=== PATIENT | female | born 1985 | race Caucasian/White ===

== ENCOUNTER 2016-05-30 15:27 | Emergency (ER) | payer MEDICAID ==
[~2016-05-30] VITALS: Ht 162.6 cm; Wt 80.0 kg
[2016-05-30 15:29] VITALS: Ht 162.6 cm; Wt 80.0 kg
[2016-05-30] MEDS ORDERED: ACETAMINOPHEN 325 MG TAB PO STA (16:57)
--- NOTE | 2016-05-30 17:24 | ERD ---
ER Documentation Chief Complaint Date/Time DATE: 05/30/16 TIME: 17:23 Chief Complaint pelvic pain since yesterday , 14 weeks preg , no vag bleed HPI Patient is a 30-year-old female who presents to the ED with low back pain and pelvic pain 1 day. She is with a last normal menstrual period of . She states that she has an OB doctor but is unsure of the name. She also complains of light vaginal spotting 3 days ago. Denies fever or chills. Denies abdominal pain, nausea, vomiting, diarrhea or constipation. Leg pain or swelling. Denies cough, shortness of breath or difficulty breathing. ROS All systems reviewed and are negative except as per history of present illness. Medications Home Meds Active Scripts Acetaminophen* (Tylophen*) 500 Mg Capsule, 1 CAP PO Q6H Y for PAIN AND OR ELEVATED TEMP, #20 CAP Prov:CARLOS ANDERSEN PA-C 05/30/16 Nitrofurantoin Monohyd Macrocr* (Macrobid*) 100 Mg Capsr, 100 MG PO BID for 7 Days, CAP Prov:CARLOS ANDERSEN PA-C 05/30/16 PMhx/Soc Medical and Surgical Hx: pt denies Medical Hx, pt denies Surgical Hx History of Surgery: No Anesthesia Reaction: No Hx Neurological Disorder: No Hx Respiratory Disorders: No Hx Cardiac Disorders: No Hx Psychiatric Problems: No Hx Miscellaneous Medical Probl: No Hx Alcohol Use: No Hx Substance Use: No Hx Tobacco Use: No Smoking Status: Never smoker Physical Exam Vitals Vital Signs Date Time Temp Pulse Resp B/P Pulse Ox O2 Delivery O2 Flow Rate FiO2 05/30/16 15:29 98.4 90 18 128/65 100 Physical Exam GENERAL: Well-developed, well-nourished female. Appears in no acute distress. LUNG: Clear to auscultation bilaterally. No rhonchi, wheezing, rales or coarse breath sounds. HEART: Regular rate and rhythm. No murmurs, rubs or gallops. ABDOMEN: No scars, ecchymosis or rashes noted. Soft, nontender, and nondistended. Positive bowel sounds in all four quadrants. No rebound tenderness , no guarding. (-) McBurneys point tenderness. No CVA tenderness. BACK: No midline tenderness. Extremities: Equal pulses bilaterally. No peripheral clubbing, cyanosis or edema. No unilateral leg swelling. NEUROLOGIC: Alert and oriented. Moving all four extremities. 5/5 strength in all extremities. Normal speech. Steady gait. SKIN: Normal color. Warm and dry. No rashes or lesions. Capillary refill < 2 seconds Result Diagram: 05/30/16 0810 Results 24 hrs Laboratory Tests Test 05/30/16 17:30 White Blood Count 9.110^3/ul Red Blood Count 4.2510^6/ul Hemoglobin 11.6g/dl Hematocrit 34.9% Mean Corpuscular Volume 82.1fl Mean Corpuscular Hemoglobin 27.3pg Mean Corpuscular Hemoglobin Concent 33.2g/dl Red Cell Distribution Width 15.0% Platelet Count 70005^3/UL Mean Platelet Volume 10.1fl Neutrophils % 70.0% Lymphocytes % 19.8% Monocytes % 7.9% Eosinophils % 1.6% Basophils % 0.3% Nucleated Red Blood Cells % 0.0/100WBC Neutrophils # 6.410^3/ul Lymphocytes # 1.810^3/ul Monocytes # 0.710^3/ul Eosinophils # 0.210^3/ul Basophils # 0.010^3/ul Nucleated Red Blood Cells # 0.010^3/ul Urine Color LT. YELLOW Urine Clarity SLIGHTLY CLOUDY Urine pH 6.0 Urine Specific [facility] 1.020 Urine Ketones TRACE Urine Nitrite NEGATIVE Urine Bilirubin NEGATIVE Urine Urobilinogen 0.2 E.U./dL Urine Leukocyte Esterase 1+ Urine Microscopic RBC 0-2/HPF Urine Microscopic WBC 5-10/HPF Urine Epithelial Cells MANY Urine Bacteria FEW Urine Hemoglobin NEGATIVE Urine Glucose NEGATIVE% Urine Total Protein NEGATIVE Beta HCG, Quantitative 10948.0mIU/ml Current Medications Medications (Trade) Dose Ordered Sig/Lilliana Route PRN Reason Start Time Stop Time Status Last Admin Dose Admin Acetaminophen (Tylenol Tab) 650 mg ONCE STAT PO 05/30/16 16:57 05/30/16 17:00 DC 05/30/16 17:29 Procedures/MDM ER COURSE: I kept the patient and/or family informed of laboratory and diagnostic imaging results throughout the emergency room course. EKG, MONITORS, & DIAGNOSTIC IMAGING: [place] [id number] Radiology Main Line: [phone] DIAGNOSTIC IMAGING REPORT Patient: MARIA LUISA VALLADARES : 1985 Age: 30 Sex: F MR #: [id number] DOS: 05/30/16 1657 Ordering MD: CARLOS ANDERSEN PA-C Location: [facility] Room/Bed: PROCEDURE: Real Time Sonogram. 05/30/20165:21 PM CLINICAL INDICATION: pelvic pain, back pain, light vaginal spotting TECHNIQUE: This procedure was performed on a high-resolution real time Unit using a endovaginal probe. COMPARISON: No. FINDINGS: The uterus measures 11.7 cm sagittal sagittal by 7.8 cm AP and contains a gestational sac containing a single fetus. Presentation: Mobile. Cervical Length: 4.5 cm. Placental Location: Anterior. Grade 0. Placental Previa: No. Body limb and cardiac motion: Yes. Heart rate: 154 beats per minute. Amniotic fluid volume: Normal. Measured data: BPD: 2.53 cm 14 weeks 3 days HC: 9.33 cm 14 weeks 2 days. AC: 8.5 cm 14 weeks 6 days. FC: 1.4 cm 14 weeks 1 day. AUA: 14 weeks 3 days plus or minus 1 week 0 days. JONH (AUA): 11/25/2016. Serial scan estimated menstrual age: Not calculated. weight: Not calculated. Endovaginal imaging utilized:Yes Additional findings: The left ovary measures 2.4 x 1.1 x 1.5 cm. The right ovary was not evaluated. IMPRESSION: See above RPTAT:AAJJ Physician John Paul Date Time Electronically viewed and signed by Physician John Paul on 05/30/2016 18:04 JM/ CC: CARLOS ANDERSEN PA-C LAB INTERPRETATION: CBC showed no evidence of systemic infection or severe anemia. UA showed nitrites or hematuria, 1+ leukocytes. C.0 RH:o+ MEDICAL DECISION MAKING: This is a 30-year-old female who presents with who presents mild pelvic pain vital signs were reviewed. Patient is afebrile. Patient is not hypoxic. Patient is nontoxic or ill-appearing. Ultrasound is read by radiologist is unremarkable. Low suspicion for ovarian torsion, PID, tuboovarian abscess, ectopic , bowel obstruction, pyelonephritis, appendicitis, cervicitis, septic , molar , HELLP syndrome, preeclampsia, eclampsia, placenta previa, placenta abruptia. Patient likely has threatened and UTI. Patient is hemodynamically stable. DISCHARGE: At this time, patient is stable for discharge and outpatient management with no new complaints during the ER course. Patient was sent home with copy of imaging studies and laboratory studies and to follow-up with her OB doctor. Patient will also be sent home with Macrobid.. Patient will be discharged home with instructions to recheck for new or worsening symptoms such as fever, nausea, weakness, LOC and to follow up with primary care in the next 1-2 days. Patient was advised to return to the ER for any new or worsening symptoms. Plan was discussed and patient and/or family understands and agrees. Home instructions were given. Departure Diagnosis: Primary Impression: Pelvic pain complicating Condition: Stable CARLOS ANDERSEN PA-C May 30, 2016 17:24
[2016-05-30 17:49] LABS: ADD SCAN DIFF NO
[2016-05-30 17:52] LABS: BASOPHILS % 0.3 % (0.0-2.0); EOSINOPHILS # 0.2 10^3/ul (0.0-0.5); EOSINOPHILS % 1.6 % (0.0-7.0); HEMATOCRIT 34.9 % (37.0-47.0); HEMOGLOBIN 11.6 g/dl (12.0-16.0); LYMPHOCYTES # 1.8 10^3/ul (0.8-2.9); LYMPHOCYTES % 19.8 % (15.0-51.0); MEAN CORPUSCULAR HEMOGLOBIN 27.3 pg (29.0-33.0); MEAN CORPUSCULAR HGB CONC 33.2 g/dl (32.0-37.0); MEAN CORPUSCULAR VOLUME 82.1 fl (82.0-101.0); MEAN PLATELET VOLUME 10.1 fl (7.4-10.4); MONOCYTE # 0.7 10^3/ul (0.3-0.9); MONOCYTES % 7.9 % (0.0-11.0); NEUTROPHIL # 6.4 10^3/ul (1.6-7.5); PLATELET COUNT 259 10^3/UL (140-415); RED BLOOD COUNT 4.25 10^6/ul (4.20-5.40); WHITE BLOOD COUNT 9.1 10^3/ul (4.8-10.8)
[2016-05-30 17:55] LABS: ADD UMIC YES; URINE BILIRUBIN (Dip) NEGATIVE (NEGATIVE); URINE BLOOD (Dip) NEGATIVE (NEGATIVE); URINE COLOR LT. YELLOW (YELLOW); URINE GLUCOSE (Dip) NEGATIVE (NEGATIVE); URINE KETONES (Dip) TRACE (NEGATIVE); URINE LEUKOCYTE ESTERASE (Dip) 1+ (NEGATIVE); URINE NITRITE (Dip) NEGATIVE (NEGATIVE); URINE TOTAL PROTEIN (Dip) NEGATIVE (NEGATIVE); URINE UROBILINOGEN (Dip) 0.2 E.U./dL (0.1-1.0)
[2016-05-30 18:03] LABS: BACTERIA,URINE FEW; URINE RBCS 0-2 /HPF (0)
--- NOTE | 2016-05-30 18:04 | RADRPT ---
PROCEDURE: Real Time Sonogram. 05/30/20165:21 PM CLINICAL INDICATION: pelvic pain, back pain, light vaginal spotting TECHNIQUE: This procedure was performed on a high-resolution real time Unit using a endovaginal pr obe. COMPARISON: No. FINDINGS: The uterus measures 11.7 cm sagittal sagittal by 7.8 cm AP and contains a gestational sac containing a single fetus. Presentation: Mobile. Cervical Length: 4.5 cm.Placental Location: Anterior. Grade 0.Placental Previa: No. Body limb and cardiac motion: Yes.Heart rate: 154 beats per minute. Amniotic fluid volume:Normal. Measured data: BPD:2.53 cm14 weeks 3 days HC:9.33 cm14 weeks 2 days. AC:8.5 cm14 weeks 6 days. FC:1.4 cm14 weeks 1 day. AUA:14 weeks 3 daysplus or minus 1 week 0 days. JONH (AUA):11/25/2016. Serial scan estimated menstrual age: Not calculated. weight: Not calculated. Endovaginal imaging utilized:Yes Additional findings: The left ovary measures 2.4 x 1.1 x 1.5 cm. The right ovary was not evaluated. IMPRESSION: See above RPTAT:AAJJ Physician John Paul Date Time Electronically viewed and signed by Crow Whaley Physician on 05/30/2016 18:04 KHOA/
[2016-05-30] MEDS ORDERED: NITR-58 PO (18:15)
[2016-05-30] MEDS ORDERED: ACET500C5 PO (18:16)
[2016-05-30 19:04] VITALS: BP 108/53; PULSE 78; RESP 16; TEMP 98.2
== END 2016-05-30 19:05 | disposition home or self-care (01) ==
LOC: FTE 15:27
DX: O26.892 Other specified pregnancy related conditions, second trimester (principal); R10.2 Pelvic and perineal pain; Z3A.14 14 weeks gestation of pregnancy
CPT/HCPCS: 76805; 81001; 81003; 84702; 85025; 86900; 86901; Z7610; 36415

== ENCOUNTER 2016-11-02 00:17 | Inpatient (IN) | payer MEDICAID ==
--- NOTE | 2016-09-07 23:55 | PN ---
Triage Information Date/Time 09/07/2013 Weeks of Gestation 28 weeks and 2 days : 3 Para: 2 Diabetes: none Hypertention: none Additional information 30-year-old 3 para 2 with IUP at 28 weeks and 2 days presented with complaint of uterine contractions or leaking of fluid. She denied any vaginal bleeding. She denies any compensation during her antepartum course. She was a scheduled for GDM screening test this week. Objective Heart Rate: 130's Contractions: 6-10 Minutes Apart Exam General appearance: Alert and oriented 4 patient does not appear to be in acute distress Abdomen: Soft, gravid, nontender, fundal height consistent with gestational age NST: Category 1 and appropriate for gestational age Irregular contractions noted on the monitor results with hydration Assessment: Examination: Negative pulling R OM test negative. FFM negative Cervix is 4 cm long. Results/Medications Imaging Results PROCEDURE: US OB biophysical profile. CLINICAL INDICATION: decreased movements TECHNIQUE: Multiple sonographic images of the pelvis were obtained. The images were reviewed on a PACS workstation. COMPARISON: No prior studies are available for comparison. FINDINGS: There is a single viable intrauterine gestation. Cardiac activity is present with 150 beats per minute. There is a vertex presentation. The placenta is anterior. There is no evidence of placental abruption. There is a slightly increased amount of amniotic fluid with an CORRY = 22.4 cm. Biophysical profile: movement 2/2 tone 2/2. breathing 2/2 CORRY 2/2 Total 8 RPTAT: AA . IMPRESSION: Normal biophysical profile. Mild polyhydramnios. . ROCEDURE: CERVICAL LENGTH ULTRASOUND CLINICAL INDICATION: labor at 28 weeks gestational age. TECHNIQUE: Trans-vaginal imaging of the cervical canal was performed utilizing mckenzie-scale imaging. Sagittal and transverse images were obtained. Trans-abdominal images were also obtained. The images were reviewed on a PACS workstation. COMPARISON: None. FINDINGS: There is a single live intrauterine . heart rate is 141 beats per minute. Position is cephalic and placenta is anterior grade 1. There is no placenta previa. The cervix is closed with a length of 4.0 cm. IMPRESSION: 1. Cervical length is 4.0 cm. RPTAT: QQ Assessment/Plan IUP at 28 weeks and 2 days No evidence of labor or PPROM Borderline mild polyhydramnios noted in ultrasound Patient had early GDM testing that was negative Large for gestational age based on estimated weight in ultrasound, 98 % Finding discussed with the patient strict labor precaution and kick count discussed Advised the patient to have a follow-up in 1-2 days after discharge from the triage with her OB office for further evaluation of polyhydramnios Random blood sugar in the triage within normal limits Needs to have a follow-up for the amniotic fluid and growth ultrasound Patient verbalized understanding CARMEN FONTANEZ MD Sep 07, 2016 23:54
[~2016-11-02] VITALS: Ht 152.4 cm; Wt 96.4 kg
[~2016-11-02 00:17] MED LIST: ACET500C5 PO
[2016-11-02 00:37] VITALS: BP 115/75; PULSE 101; RESP 20; Ht 152.4 cm; Wt 96.4 kg
[2016-11-02] MEDS ORDERED: PREN1TAB79 PO (00:40)
[2016-11-02] MEDS ORDERED: FERR325C PO (00:40)
[2016-11-02] MEDS ORDERED: LACTATED RINGER'S 1,000 ML IV* SCH (01:30)
[2016-11-02] MEDS ORDERED: LACTATED RINGER'S 1,000 ML IV ONE (01:30)
--- NOTE | 2016-11-02 02:10 | RADRPT ---
PROCEDURE: Biophysical profile. CLINICAL INDICATION: Pelvic pain. TECHNIQUE: Multiple sonographic images of the pelvis were obtained with transabdominal technique. COMPARISON: 09/07/2016. FINDINGS: There is a single living intrauterine gestation with the fetus in a vertex position. The placenta i s anterior in location, grade II. heart tones of 163 beats per minute are identified. There i s normal amniotic fluid volume with an CORRY of 9.9 cm. breathing movements = 2 Gross body movements = 2 tone = 2 Qualitative AFV = 2 IMPRESSION: Biophysical profile 8 out of 8. .Bruno Valenzuela MD, Date Time Electronically viewed and signed by .Bruno Valenzuela MD, on 11/02/2016 02:10 .T/
--- NOTE | 2016-11-02 02:12 | RADRPT ---
PROCEDURE: Obstetrical ultrasound, limited. CLINICAL INDICATION: Pelvic pain. TECHNIQUE: Multiple sonographic images of the pelvis were obtained using transabdominal technique . Images were obtained with mckenzie scale and color Doppler. The images were reviewed on a PACS works tation. COMPARISON: 09/07/2016. FINDINGS: There is a single living intrauterine gestation with the fetus in a vertex presentation. hear t tones of 163 beats per minute are identified. The placenta is anterior in location, grade 2. The re is no evidence of placenta previa or abruption. Measurements were made in order to determine age. The results are as follows: BPD =8.90 cm HC =31.80 cm AC =35.15 cm FL =6.87 cm. Estimated gestational age of approximately 36 weeks and 4 days. The estimated date of delivery is 11/26/2016. The EFW = 3219 +/- 483 grams. Estimated weight percentage equals 82.6%. IMPRESSION: Single viable intrauterine gestation of approximately 36 weeks and 4 days, with an ultrasound JONH of 11/26/2016. .Bruno Valenzuela MD, MD Date Time Electronically viewed and signed by .Bruno Valenzuela MD, MD on 11/02/2016 02:12 .T/
[2016-11-02 02:27] LABS: ABNORMAL IP MESSAGE 1; BASOPHILS % 0.3 % (0.0-2.0); EOSINOPHILS # 0.1 10^3/ul (0.0-0.5); EOSINOPHILS % 0.7 % (0.0-7.0); HEMATOCRIT 31.5 % (37.0-47.0); HEMOGLOBIN 10.2 g/dl (12.0-16.0); LYMPHOCYTES # 0.4 10^3/ul (0.8-2.9); LYMPHOCYTES % 5.3 % (15.0-51.0); MEAN CORPUSCULAR HEMOGLOBIN 26.6 pg (29.0-33.0); MEAN CORPUSCULAR HGB CONC 32.4 g/dl (32.0-37.0); MONOCYTE # 0.7 10^3/ul (0.3-0.9); MONOCYTES % 10.5 % (0.0-11.0); NEUTROPHILS % 82.5 % (39.0-77.0); PLATELET COUNT 196 10^3/UL (140-415); RED BLOOD COUNT 3.84 10^6/ul (4.20-5.40); RED CELL DISTRIBUTION WIDTH 15.5 % (11.5-14.5); WHITE BLOOD COUNT 6.8 10^3/ul (4.8-10.8)
[2016-11-02 02:29] LABS: ADD UMIC NO; UR ASCORBIC ACID NEGATIVE (NEGATIVE); UR BACTERIA FEW /HPF (NONE SEEN); UR BILIRUBIN (Dip) NEGATIVE (NEGATIVE); UR BLOOD (Dip) NEGATIVE (NEGATIVE); UR CLARITY SLIGHTLY CLOUDY (CLEAR); UR COLOR YELLOW (YELLOW); UR GLUCOSE (Dip) NEGATIVE (NEGATIVE); UR KETONES (Dip) NEGATIVE (NEGATIVE); UR LEUKOCYTE ESTERASE (Dip) NEGATIVE Leu/ul (NEGATIVE); UR MUCUS FEW /HPF (NONE SEEN); UR NITRITE (Dip) NEGATIVE (NEGATIVE); UR RBC 1 /HPF (0-5); UR SPECIFIC GRAVITY (Dip) 1.013 (1.003-1.030); UR SQUAMOUS EPITHELIAL CELL FEW /HPF (FEW); UR TOTAL PROTEIN (Dip) NEGATIVE (NEGATIVE); UR UROBILINOGEN (Dip) NEGATIVE (NEGATIVE)
[2016-11-02 02:35] LABS: POSITIVE DIFF @See below
[2016-11-02] MEDS ORDERED: CEFTRIAXONE 1 GM/50 ML (PMX) 50 ML IVPB ONE (04:00)
[2016-11-02] MEDS ORDERED: LACTATED RINGER'S 1,000 ML IV SCH (04:03)
[2016-11-02] MEDS ORDERED: ACETAMINOPHEN 500 MG TAB PO ONE (04:39)
[2016-11-02] MEDS: SOD CHLORIDE 0.9% 1,000 ML IV SCH ×4 (05:00→23:36)
[2016-11-02] MEDS: CEFTRIAXONE 1 GM/50 ML (PMX) 50 ML IVPB SCH (05:01)
--- NOTE | 2016-11-02 05:19 | HP ---
Date/Time of Note Date/Time of Note DATE: 11/02/16 TIME: 05:02 OB - History Hx of Present Free Text/Dictation 30 y.o [id number] presented at triage c/o back pain and nusea hip bone pain since 0900 this morning She was placed on antibiotics 1800 11/01/16 IV hydration with BPP EFW U/A done U/A neg EFM shows tachycardia 160-170 along with maternal low grade fever, maternal HR 107 WBC 6800 and started having UCs on EFM CVA on Rt tenderness + LT neg for tenderness admitted for observation and with IV fluid and rocephin Chief Complaint: back pain Estimated Due Date: Nov 28, 2016 : 3 Para: 2 Spontaneous : 0 Therapeutic : 0 Care: Other Ultrasounds: Other Obstetrical Complications: None Medical Complications: None Past Family/Social History * Past Medical, Surgical, Family and Obstetric Histories reviewed from chart. Blood Type: Unknown Rubella: unknown RPR/VDRL: Unknown GBS Status: Unknown HBsAG: Unknown OB Admission Exam Vital Signs Vital Signs Vital Signs Date Time Temp Pulse Resp B/P Pulse Ox O2 Delivery O2 Flow Rate FiO2 11/02/16 00:37 98.3 101 20 115/75 98 Room Air Physical Exam HEENT: WNL Heart: Rhythm Normal Lungs: Clear, Equal Abdomen: WNL Extremities: Normal Reflexes: Normal Membranes: Intact Amniotic Fluid: Unevaluable Accelerations: Accelerations Present Decelerations: No Decelerations Varibility: Moderate Contractions on Admission: 6-10 Minutes Apart Intensity: Mild Last 72 hours Lab Results CBC & BMP 11/02/16 01:30 OB Assessment/Plan Reason for admission: labor, other (back pain) Other Assessment: IUP 36w2d r/o UTI urine culture sent Other plan: IV with antibiotics and observation ERIKA ORNELAS MD Nov 02, 2016 05:15
[2016-11-02 06:23] LABS: INR 0.94; PROTIME 12.6 Sec (12.2-14.2)
[2016-11-02 06:24] LABS: PARTIAL THROMBOPLASTIN TIME 29.9 Sec (25.0-35.0)
--- NOTE | 2016-11-02 06:47 | TRIAGE ---
OB Triage Datetime Report Generated by CPN: 11/02/2016 06:46 Datetime: 11/02/2016 06:38 Stage of : Labor Maternal Assessment Level of Consciousness: Fully Conscious DTR's/Clonus: DTRs 2+ Headache: Denies Blurred Vision: Yes Nausea/Vomiting: Denies RUQ Epigastric Pain: Denies Facial Edema: None Labor Evaluation Frequency: 3-4 Monitor Mode: External Duration (sec)2399: 30-40 Quality: Mild Heart Rate FHR Baseline Rate: 155 Monitor Mode: External US FHR Baseline Changes: No Baseline Change Variability: Moderate 6-25 bpm Decelerations: None Category: Category I Pain Assessment Pain Scale: 0 Pain Presence: None/Denies Pain Type: N/A Pain Location: Abdomen Pain Relief Measures: Comfort Measures Membrane Status: Intact Datetime: 11/02/2016 05:55 Stage of : Labor Maternal Assessment Level of Consciousness: Fully Conscious DTR's/Clonus: DTRs 2+ Headache: Denies Blurred Vision: No Respiratory Effort: Unlabored Breath Sounds, Left: Clear and Equal Breath Sounds, Right: Clear and Equal Nausea/Vomiting: Denies RUQ Epigastric Pain: Denies Facial Edema: None Labor Evaluation Frequency: 2.5-3 Monitor Mode: External Duration (sec)2399: 30-45 Quality: Mild Pattern: Normal: <= 5 Contractions in 10 Minutes Resting Tone [place]: Relaxed Heart Rate FHR Baseline Rate: 150 Monitor Mode: External US FHR Baseline Changes: No Baseline Change Variability: Moderate 6-25 bpm Accelerations: 15X15 Decelerations: None Category: Category I Pain Assessment Pain Scale: 5 Pain Presence: Intermittent Pain Type: Cramping; Contraction Pain Relief Measures: Comfort Measures Vaginal Exam Dilatation (cms): 0.5 Effacement (%): 60 Station: -3 Exam By: avery schmidt rn Membrane Status: Intact Vaginal Bleeding: None Cervix, Consistency: Soft Cervix, Position: Midposition Presentation 'A': Cephalic Lie 'A': Unable to Assess Datetime: 11/02/2016 05:30 Assessment Type: Admission Assessment Vaginal Bleeding: None Maternal Assessment Level of Consciousness: Fully Conscious DTR's/Clonus: DTRs 2+; No Clonus Headache: Denies Blurred Vision: No Respiratory Effort: Unlabored; Regular Rhythm; Equal Expansion Breath Sounds, Left: Clear and Equal Breath Sounds, Right: Clear and Equal Nausea/Vomiting: Denies RUQ Epigastric Pain: Denies Facial Edema: None Fall Risk Assessment History of Falling: (0) No Secondary Diagnosis: (0) No Ambulatory Aid: (0) Bedrest/Nurse Assist IV Therapy: (20) Yes Gait: (0) Normal/Bedrest/Immobile Mental Status: (0) Oriented to Own Ability Fall Score: 20 Fall Risk Score Definition: No Risk: No action required Labor Evaluation Frequency: 2-3 Duration (sec)2399: 30-45 Quality: Mild Pattern: Normal: <= 5 Contractions in 10 Minutes Resting Tone [place]: Relaxed Pain Assessment Pain Scale: 5 Pain Presence: Intermittent Pain Type: Cramping; Dull; Contraction; Ache Pain Location: Abdomen; Back Pain Goal: 2 Membrane Status: Intact Datetime: 11/02/2016 05:05 Stage of : Labor Maternal Assessment Level of Consciousness: Fully Conscious DTR's/Clonus: DTRs 2+ Headache: Denies Blurred Vision: No Respiratory Effort: Unlabored Breath Sounds, Left: Clear and Equal Breath Sounds, Right: Clear and Equal Nausea/Vomiting: Denies RUQ Epigastric Pain: Denies Facial Edema: None Labor Evaluation Frequency: 3 Monitor Mode: External Duration (sec)2399: 35-45 Quality: Mild Pattern: Normal: <= 5 Contractions in 10 Minutes Resting Tone [place]: Relaxed Heart Rate FHR Baseline Rate: 165 Monitor Mode: External US FHR Baseline Changes: Tachycardia Variability: Moderate 6-25 bpm Accelerations: 15X15 Decelerations: None Category: Category II Pain Assessment Pain Scale: 6 Pain Presence: Intermittent Pain Type: Cramping; Dull; Ache Pain Location: Abdomen; Back; Right Groin; Left Groin; Right Hip; Left Hip; Right Flank Pain Goal: 2 Pain Relief Measures: Pain Medication Given; Comfort Measures Pain Assessment Comments: tylenol 1000mg po as ordered Membrane Status: Intact Datetime: 11/02/2016 04:00 Stage of : OB Triage Labor Evaluation Frequency: Irritability with irregular uc's Monitor Mode: External Duration (sec)2399: 20-80 Quality: Mild Pattern: Normal: <= 5 Contractions in 10 Minutes Resting Tone [place]: Relaxed Heart Rate FHR Baseline Rate: 165 Monitor Mode: External US FHR Baseline Changes: Tachycardia Variability: Moderate 6-25 bpm Accelerations: 15X15 Decelerations: None Category: Category II Datetime: 11/02/2016 03:57 Temperature Route: Oral Datetime: 11/02/2016 03:54 Membrane Status: Intact Datetime: 11/02/2016 03:30 Temperature Route: Oral Datetime: 11/02/2016 03:00 Stage of : OB Triage Labor Evaluation Frequency: Irritability with irregular uc's Monitor Mode: External Duration (sec)2399: 30-90 Quality: Mild Pattern: Normal: <= 5 Contractions in 10 Minutes Resting Tone [place]: Relaxed Heart Rate FHR Baseline Rate: 165 Monitor Mode: External US FHR Baseline Changes: Tachycardia Variability: Moderate 6-25 bpm Accelerations: 15X15 Decelerations: None Category: Category II Datetime: 11/02/2016 02:35 Temperature Route: Oral Datetime: 11/02/2016 02:08 Stage of : OB Triage Datetime: 11/02/2016 02:00 Stage of : OB Triage Labor Evaluation Frequency: Irritability with irregular uc's Monitor Mode: External Duration (sec)2399: 30-60 Quality: Mild Pattern: Normal: <= 5 Contractions in 10 Minutes Resting Tone [place]: Relaxed Heart Rate FHR Baseline Rate: 170 Monitor Mode: External US FHR Baseline Changes: Tachycardia Variability: Moderate 6-25 bpm Accelerations: 15X15 Decelerations: None Category: Category II Datetime: 11/02/2016 01:00 Stage of : OB Triage Labor Evaluation Frequency: Irritability Monitor Mode: External Duration (sec)2399: 30-60 Quality: Mild Pattern: Normal: <= 5 Contractions in 10 Minutes Resting Tone [place]: Relaxed Heart Rate FHR Baseline Rate: 165 Monitor Mode: External US FHR Baseline Changes: Tachycardia Variability: Moderate 6-25 bpm Accelerations: 15X15 Decelerations: None Category: Category II Datetime: 11/02/2016 00:56 Stage of : OB Triage Datetime: 11/02/2016 00:54 Stage of : OB Triage Datetime: 11/02/2016 00:30 Time of Arrival: 11/02/2016 04:30 EGA: 36.2 Arrived By: Wheelchair Arrived From: Home Chief Complaint: Bone aches, back _ body pains Movement: Present Contractions: Denies/Absent Rupture of Membranes: Denies Vaginal Bleeding: None Vaginal Discharge: Present Abdominal Trauma: Not Applicable Patient Complaints: Back Pain Time Provider Notified: 11/02/2016 00:56 Provider Notified: Initial Plan: UA, BPP, EFW, IV hydration, CBC Datetime: 11/02/2016 00:28 Stage of : OB Triage Assessment Type: Triage Maternal Assessment Level of Consciousness: Fully Conscious DTR's/Clonus: DTRs 2+; No Clonus Headache: Frontal (Annotations: and ear ache) Blurred Vision: No Respiratory Effort: Unlabored; Regular Rhythm; Equal Expansion Breath Sounds, Left: Clear and Equal Breath Sounds, Right: Clear and Equal Nausea/Vomiting: Present (Annotations: Nausea all day) RUQ Epigastric Pain: Denies Lower Extremities Edema: None Degree: None Upper Extremities Edema: None Degree: None Facial Edema: None Temperature Route: Oral Fall Risk Assessment History of Falling: (0) No Secondary Diagnosis: (0) No Ambulatory Aid: (0) Bedrest/Nurse Assist IV Therapy: (0) No Gait: (0) Normal/Bedrest/Immobile Mental Status: (0) Oriented to Own Ability Fall Score: 0 Fall Risk Score Definition: No Risk: No action required Pain Assessment Pain Scale: 4 Pain Presence: Constant Pain Type: Ache Pain Location: Back; Right Hip; Left Hip Pain Relief Measures: Comfort Measures Datetime: 09/07/2016 15:18 Fall Score: 0 Fall Risk Score Definition: No Risk: No action required Datetime: 09/07/2016 15:08 EGA: 28.2
[2016-11-02] MEDS: ACETAMINOPHEN 325 MG TAB PO PRN ×2 (09:40→21:51)
[2016-11-02 11:05] LABS: BARBITURATES Negative (NEGATIVE); BENZODIAZEPINES Negative (NEGATIVE); CANNABINOIDS Negative (NEGATIVE); COCAINE Negative (NEGATIVE); OPIATES Negative (NEGATIVE)
--- NOTE | 2016-11-02 12:27 | QN ---
Documentation Comment Progress note labor and delivery Since seen and evaluated awake alert oriented 3 denies nausea vomiting's of breath visual changes Complains of contraction and lower back pain Vital signs stable afebrile Abdomen gravid positive left CVA tenderness Extremity negative edema no calf tenderness Vaginal exam 2/40/-3 heart rate category 1 toco contractions every 1-4 minutes Assessment interim at 36 weeks and 2 day gestational age with left pyelonephritis/ labor currently on IV antibiotics Plan continue expected management NORBERTO RAMON MD Nov 02, 2016 12:27
[2016-11-02] MEDS ORDERED: OXYTOCIN 30 UNITS/LR 500 ML IV SCH ×2 (12:30)
[2016-11-02] MEDS ORDERED: LIDOCAINE 1% (MPF) 30 ML INJ INJ PRN (12:30)
[2016-11-02] MEDS ORDERED: MISOPROSTOL 200 MCG TAB PR PRN (12:30)
[2016-11-02] MEDS ORDERED: METHYLERGONOVINE 0.2 MG INJ IM PRN (12:30)
[2016-11-02] MEDS ORDERED: OXYTOCIN 30 UNITS/LR 500 ML IV PRN (12:30)
[2016-11-02] MEDS ORDERED: CARBOPROST 250 MCG INJ IM PRN (12:30)
[2016-11-02] MEDS ORDERED: BUTORPHANOL 2 MG INJ IV ONE (17:00)
[2016-11-03] MEDS: CEFTRIAXONE 1 GM/50 ML (PMX) 50 ML IVPB SCH (05:01)
[2016-11-03] MEDS: BUTORPHANOL 2 MG INJ IV PRN (06:05)
[2016-11-03] MEDS: SOD CHLORIDE 0.9% 1,000 ML IV SCH ×3 (07:46→22:52)
[2016-11-03] MEDS: ACETAMINOPHEN 325 MG TAB PO PRN ×3 (15:06→22:52)
--- NOTE | 2016-11-03 19:34 | QN ---
Documentation Comment Progress note labor and delivery Patient seen and evaluated awake alert oriented 3 denies nausea vomiting shortness of breath visual changes epigastric pain Vital signs stable afebrile H EENT within normal Lungs CTA bilateral CVS positive S1-S2 regular rhythm Abdomen gravid positive right CVA tenderness improved since yesterday Extremity no edema no calf tenderness Patient had a urine culture performed on October 26, 2016 more than 100,000 Klebsiella sensitive to ceftriaxone Assessment intrauterine at 36 weeks gestational age currently on Rocephin improving symptoms of pyelonephritis Plan consider discharge home tomorrow if patient's symptoms improve NORBERTO RAMON MD Nov 03, 2016 19:34
[2016-11-04] MEDS: BUTORPHANOL 2 MG INJ IV PRN ×3 (03:19→15:57)
[2016-11-04] MEDS: SOD CHLORIDE 0.9% 1,000 ML IV SCH (04:22)
[2016-11-04] MEDS: CEFTRIAXONE 1 GM/50 ML (PMX) 50 ML IVPB SCH (05:23)
[2016-11-04] MEDS ORDERED: OXYTOCIN 30 UNITS/LR 500 ML IV SCH (07:30)
[2016-11-04] MEDS: ACETAMINOPHEN 325 MG TAB PO PRN (07:35)
--- NOTE | 2016-11-04 09:19 | QN ---
Documentation Comment I was called this morning and made aware patient had premature rupture of membrane. I gave orders for Pitocin augmentation as needed. NORBERTO RAMON MD Nov 04, 2016 09:19
[2016-11-04] MEDS: LACTATED RINGER'S 1,000 ML IV PRN ×2 (11:31→18:31)
[2016-11-04] MEDS: LACTATED RINGER'S 1,000 ML IV SCH ×2 (13:58→20:06)
[2016-11-04 15:37] LABS: BASOPHILS % 0.3 % (0.0-2.0); HEMATOCRIT 34.4 % (37.0-47.0); HEMOGLOBIN 10.9 g/dl (12.0-16.0); LYMPHOCYTES # 0.8 10^3/ul (0.8-2.9); LYMPHOCYTES % 10.4 % (15.0-51.0); MEAN CORPUSCULAR HGB CONC 31.7 g/dl (32.0-37.0); MEAN CORPUSCULAR VOLUME 85.1 fl (82.0-101.0); MEAN PLATELET VOLUME 11.5 fl (7.4-10.4); MONOCYTE # 0.3 10^3/ul (0.3-0.9); MONOCYTES % 4.2 % (0.0-11.0); NEUTROPHILS % 84.7 % (39.0-77.0); PLATELET COUNT 180 10^3/UL (140-415); RED BLOOD COUNT 4.04 10^6/ul (4.20-5.40); RED CELL DISTRIBUTION WIDTH 15.9 % (11.5-14.5); WHITE BLOOD COUNT 7.8 10^3/ul (4.8-10.8)
[2016-11-04 15:51] LABS: ALBUMIN 2.9 g/dl (3.3-4.9); ALBUMIN/GLOBULIN RATIO 0.78; BILIRUBIN,INDIRECT 0.1 mg/dl (0-1.1); BILIRUBIN,TOTAL 0.1 mg/dl (0.2-1.3); CALCIUM 7.4 mg/dl (8.4-10.2); CREATININE 0.58 mg/dl (0.44-1.00); POTASSIUM 3.7 mmol/L (3.5-5.1); TOTAL PROTEIN 6.6 g/dl (6.1-8.1); URIC ACID 4.5 mg/dl (3.1-7.9)
[2016-11-04] MEDS ORDERED: CARBOPROST 250 MCG INJ IM PRN ×2 (16:00→20:00)
[2016-11-04] MEDS ORDERED: METHYLERGONOVINE 0.2 MG INJ IM PRN ×2 (16:00→20:00)
[2016-11-04] MEDS ORDERED: MISOPROSTOL 200 MCG TAB PR PRN ×2 (16:00→20:00)
[2016-11-04] MEDS ORDERED: OXYTOCIN 30 UNITS/LR 500 ML IV PRN ×2 (16:00→20:00)
[2016-11-04] MEDS ORDERED: CEFAZOLIN 2 GM/50 ML (PMX) 50 ML IV SCH (16:00)
[2016-11-04] MEDS ORDERED: FENTAnyl 2MCG/ML-ROPIV 0.2% 100 ML ONE (18:53)
--- NOTE | 2016-11-04 19:46 | LDN ---
Date/Time of Note Date/Time of Note DATE: 11/04/16 TIME: 19:45 Delivery Summary Weeks of Gestation 36 Placenta Delivered: Spontaneously Meconium: none Episiotomy: Yes Laceration repair: 1st degree vaginal laceration repair with 3-0 chromic Anesthesia type: Epidural Estimated blood loss: 200 Sponge & Needle done & correct: Yes All needle counts correct: Yes Any foreign bodies felt in the: No Problems: Delivery Information Sex Sex: female Apgars 1 Minute: 8 5 Minute: 9 Suctioning Nose & mouth suctioned at emanuel: No Delee suction performed: No Umbilical Cord Umbilical cord with: 3 Vessels Cord presentations: nuchal cord Nuchal cord present X: 1 Cord Blood was obtained: Yes (reducible) NORBERTO RAMON MD Nov 04, 2016 19:46
[2016-11-04] MEDS ORDERED: ONDANSETRON 4 MG INJ IV PRN (20:00)
[2016-11-04] MEDS ORDERED: WITCH HAZEL/GLYCERIN PAD PR PRN (20:00)
[2016-11-04] MEDS ORDERED: BENZOCAINE 20% 56 ML SPRAY TOP PRN (20:00)
[2016-11-04] MEDS ORDERED: ACETAMINOPHEN 325 MG TAB PO PRN (20:00)
[2016-11-04] MEDS ORDERED: SENNA/DOCUSATE NA (8.6MG/50MG) TAB PO PRN (20:00)
[2016-11-04] MEDS ORDERED: ONDANSETRON 4 MG TAB PO PRN (20:00)
[2016-11-04] MEDS ORDERED: LANOLIN 7 GM TUBE TOP PRN (20:00)
[2016-11-04] MEDS ORDERED: OXYCODONE/ASPIRIN (4.88/325) TAB PO PRN (20:00)
[2016-11-04] MEDS ORDERED: DIPHENHYDRAMINE 25 MG CAP PO PRN (20:00)
[2016-11-04] MEDS ORDERED: FENTAnyl 2MCG/ML-ROPIV 0.2% 100 ML BAG EPI SCH (21:00)
[2016-11-04] MEDS ORDERED: NALOXONE (0.4 MG/ML) INJ IV PRN (21:00)
[2016-11-04] MEDS: SENNA/DOCUSATE NA (8.6MG/50MG) TAB PO SCH (22:47)
[2016-11-04 23:00] VITALS: BP 142/80; PULSE 55; RESP 22
[2016-11-04] MEDS: MAGNESIUM HYDROXIDE 30ML CUP PO SCH (23:01)
[2016-11-05] MEDS: IBUPROFEN 600 MG TAB PO SCH ×5 (00:16→21:45)
[2016-11-05] MEDS: LACTATED RINGER'S 1,000 ML IV* SCH ×2 (00:29→05:06)
[2016-11-05] MEDS: OXYCODONE/ASPIRIN (4.88/325) TAB PO PRN (03:40)
[2016-11-05 03:45] VITALS: BP 124/81; PULSE 57; RESP 18
[2016-11-05] MEDS: CEFTRIAXONE 1 GM/50 ML (PMX) 50 ML IVPB SCH (05:01)
[2016-11-05 07:37] LABS: BASOPHILS % 0.2 % (0.0-2.0); HEMATOCRIT 28.8 % (37.0-47.0); HEMOGLOBIN 8.9 g/dl (12.0-16.0); LYMPHOCYTES # 1.8 10^3/ul (0.8-2.9); LYMPHOCYTES % 21.5 % (15.0-51.0); MEAN CORPUSCULAR HGB CONC 30.9 g/dl (32.0-37.0); MEAN CORPUSCULAR VOLUME 84.2 fl (82.0-101.0); MONOCYTE # 0.3 10^3/ul (0.3-0.9); MONOCYTES % 3.9 % (0.0-11.0); NEUTROPHILS % 73.7 % (39.0-77.0); NUCLEATED RED BLOOD CELLS% 0.2 /100WBC (0.0-0.0); PLATELET COUNT 158 10^3/UL (140-415); RED BLOOD COUNT 3.42 10^6/ul (4.20-5.40); RED CELL DISTRIBUTION WIDTH 15.8 % (11.5-14.5); WHITE BLOOD COUNT 8.5 10^3/ul (4.8-10.8)
[2016-11-05 07:45] VITALS: BP 140/79; PULSE 56; RESP 20
[2016-11-05] MEDS: MAGNESIUM HYDROXIDE 30ML CUP PO SCH ×2 (09:01→21:44)
[2016-11-05] MEDS: SENNA/DOCUSATE NA (8.6MG/50MG) TAB PO SCH ×2 (09:01→21:45)
--- NOTE | 2016-11-05 11:59 | QN ---
Documentation Comment Progress note day 1 Patient was seen and evaluated awake alert oriented 3 negative complaints Positive ambulation tolerating diet positive flatulence positive bowel movement denies headache nausea vomiting shortness of breath or visual changes Vital signs stable Abdomen soft nontender negative distention uterine fundus below umbilicus Extremity negative edema no calf tenderness Assessment status post normal spontaneous vaginal delivery day 1 resolving symptoms of pyelonephritis Plan discharge home tomorrow with Augmentin antibiotics Iron supplement NORBERTO RAMON MD Nov 05, 2016 11:59
--- NOTE | 2016-11-05 12:00 | PD.PPDC ---
COST CONTROL SPECIALIST Discharge Instruction Condition Patient Condition: Good Diet Diet: Resume Regular Diet Activity/Restrictions Activity: Normal Activity May Shower Wound/Drain Care Instructions Wound/Drain Care Instructions: Wash with soap and water Keep clean and dry Follow-up Follow-up with Physician: 3, Week/Weeks Return to clinic for INTELLIGENCE OFFICER Instructions: Fever greater than 101 Chills Worsening abdominal pain Excessive Vaginal Bleeding More than 2 pads per hour Unable to tolerate diet OB Instructions: Breast Tenderness Depression Blurried Vision Headache NORBERTO RAMON MD Nov 05, 2016 12:00
--- NOTE | 2016-11-05 12:03 | DS ---
Date/Time of Note Date/Time of Note DATE: 11/05/16 TIME: 12:01 Obstetrical Discharge Record Final Diagnosis Final Diagnosis: delivered Other Final Diagnosis ptl/ prom , pyelonephritis Vaginal Delivery Obstetrical Delivery: Spontaneous Complications Other (pyelonephritis ) Augmentation: Yes Gestational Age at Rupture 36 weeks Condition on Discharge Physical Assessment Voiding: Yes Bowel Movement: Yes Breast: Soft, non-tender, Filling Fundus: Firm Calf Tenderness: No Patient Condition: Fair NORBERTO RAMON MD Nov 05, 2016 12:02
--- NOTE | 2016-11-05 13:19 | QN ---
Documentation Comment Progress Note PPD #1 Laborist. Pt feels OK except for a little bit of lower abdominal discomfort. Minimal normal bleeding. Pt on daily Rocephin per Dr Wilks. No fever, chills. T=98.0 BP 140/74 Fundus is firm. Lochia minimal. Ext 1+ edema. WBC 8.5 Hgb 8.9 158K P: Continue care. Plan d/c tomorrow. CASEY ASHRAF MD Nov 05, 2016 13:19
[2016-11-05 15:30] VITALS: BP 94/59; PULSE 58; RESP 20
[2016-11-05 19:30] VITALS: BP 112/62; PULSE 59; RESP 18
[2016-11-06] MEDS: OXYCODONE/ASPIRIN (4.88/325) TAB PO PRN (00:46)
[2016-11-06] MEDS: CEFTRIAXONE 1 GM/50 ML (PMX) 50 ML IVPB SCH (05:08)
[2016-11-06 05:20] VITALS: BP 101/69; PULSE 65; RESP 18
[2016-11-06] MEDS: IBUPROFEN 600 MG TAB PO SCH ×2 (05:55→11:39)
[2016-11-06 08:00] VITALS: BP 108/64; PULSE 52; RESP 16
[2016-11-06] MEDS: MAGNESIUM HYDROXIDE 30ML CUP PO SCH ×2 (09:00→09:11)
[2016-11-06] MEDS: SENNA/DOCUSATE NA (8.6MG/50MG) TAB PO SCH (09:11)
== END 2016-11-06 15:50 | disposition home or self-care (01) | DRG 774 ==
LOC: OBT 00:17 → L-D 00:18 → OBT 03:59 → PP1 11-04 22:09
PROVIDERS: ADMIT Obstetrics & Gynecology; ATTEND Obstetrics & Gynecology
PROC: 10E0XZZ Delivery of Products of Conception, External Approach (ICD-10-PCS; principal; 2016-11-02)
PROC: 0HQ9XZZ Repair Perineum Skin, External Approach (ICD-10-PCS; 2016-11-02)
DX: O23.03 Infections of kidney in pregnancy, third trimester (principal); O75.3 Other infection during labor; O60.14X0 Preterm labor third trimester with preterm delivery third trimester, not applicable or unspecified; Z37.0 Single live birth; Z3A.36 36 weeks gestation of pregnancy; O42.913 Preterm premature rupture of membranes, unspecified as to length of time between rupture and onset of labor, third trimester; O70.0 First degree perineal laceration during delivery
CPT/HCPCS: 36415; 62319; 76815; 76818; 80053; 80307; 81001; 81003; 84560; 85025; 85610; 85730; 86592; 86706; 86900; 86901; 87086; 96360; 96361; 99464; G0463; J0595; J0690; J0696; J2590; J3010; J7030; J7120